=== PATIENT | male | born 1945 | race African-American/Black ===

== ENCOUNTER 2018-06-07 12:43 | Inpatient (IN) | payer MEDICARE, BC, OTHER ==
[~2018-06-07] VITALS: Ht 170.2 cm; Wt 73.5 kg
[~2018-06-07 12:43] MED LIST: ADVAIR HFA115 MCG/21 INH; ALDACTONE50 MG; AMITRIPTYLINE H25 M2 PO; ANDROGEL; ANDROGEL2.5 GM TRANSDERM; ASA81BEC PO; ASPIRIN325; ATROVENT HFA14 GM INH; ATROVENT15 ML; AUGMENTIN 875875 MG PO; AZELAST NASAL137 MCG; B-COMPLEX PLUS1 EACH PO; BACTROBAN22 GM TP; BENICAR PO; BENZEPRO100 GM; BYSTOLIC 5 MG5 M1; CALCIUM PO; CELEBREX 200 M200 M1; CIPROFLOXIN HC2.5 M1 OPHTHALMIC; CO-ENZYME Q-1010 MG PO; COENZYME Q10200 M2 PO; COLCHICINE0.6 MG; COLCHICINE0.6 MG PO; CRESTOR PO; CRESTOR5 MG; CYMBALTA20 MG; EPIPEN0.3 MG/0.1 IM; ERYTHROMYCIN E3.5 G3 OPHTHALMIC; FELODIPINE ER10 MG; FINASTERIDE5 MG PO; FISHOIL; FLEXERIL; FLEXERIL PO; FLOMAX0.4 MG; FLOMAX0.4 MG PO; FOLIC ACID PO; FOLIC ACID1 MG PO; GLUCOSAMINE &1 EAC1 PO; HYDROCORTISONE30 G9; HYTRIN 5 M5 MG/1 CAP; IBUPROFEN 400400 M2; IBUPROFEN 600600 M1; KEFLEX500 MG PO; L-ARGININE HC1000 GM MC; L-ARGININE1000 MG; L-LYSINE1000 M1; LAMICTAL XR200 MG; MEGA MEN; MOBIC7.5 M1 PO; MULTIVITAMINS; NAPROSYN500 MG PO; NITROSTAT0.4 MG; NORCO 10-325 T1 EACH; NORCO 5-325 TA1 EAC1 PO; NORCO 5-325 TA1 EACH PO; NORVASC10 MG PO; OMNARIS; OXYCONTIN10 M1; PERCOCET 5-3251 EACH PO; PERCOCET 7.5-31 EACH PO; POTASSIUM CHLO10 ME1; PROTONIX40 M1 PO; RESTASIS1 EACH OPHTHALMIC; ROBAXIN 750 MG750 M1; ROBAXIN 750 MG750 MG PO; SINGULAIR 10 MG10 M1; SKELAXIN 800 M800 M1; SPIRONOLACTONE25 M1 PO; SUPER B-COMPLE1 EAC2; TAMSULOSIN HCL0.4 MG; TRILEPTAL300 MG PO; VALIUM5 MG PO; VIAGRA100 MG; VITAMIN D1000 UNI1 PO; VITAMIN D3400 UNIT PO; VITAMIN E800 UNIT; VITAMINC500 PO; VOLTAREN GEL 1100 G1; ZETIA10 MG; ZETIA10 MG PO; ZETONNA6.1 GM; ZINC CHELATE50 MG; ZYRTEC 10 MG TA10 MG PO; [UNRECOGNIZED DRUG - OTHER]; [UNRECOGNIZED DRUG - OTHER]; [UNRECOGNIZED DRUG - OTHER]; [UNRECOGNIZED DRUG - OTHER] PO
[2018-06-07 12:51] VITALS: BP 186/85
[2018-06-07] MEDS ORDERED: CENTRUM SILVER1 EAC2 PO (13:12)
[2018-06-07] MEDS ORDERED: CO Q-10100 MG PO (13:12)
[2018-06-07] MEDS ORDERED: NEXIUM 40 MG CA40 M1 PO (13:13)
[2018-06-07] MEDS ORDERED: FISH OIL 1,001000 M2 PO (13:13)
[2018-06-07] MEDS ORDERED: HYDROCHLOROTH12.5 M1 PO (13:14)
[2018-06-07] MEDS ORDERED: SINGULAIR 10 MG10 MG PO (13:15)
[2018-06-07] MEDS ORDERED: PERCOCET 10-321 EACH PO (13:15)
[2018-06-07] MEDS ORDERED: TRULANCE3 MG PO (13:16)
[2018-06-07] MEDS ORDERED: PROTONIX40 M1 PO (13:18)
[2018-06-07] MEDS ORDERED: GAS RELIEF80 MG PO (13:18)
[2018-06-07] MEDS ORDERED: CIALIS5 MG PO (13:19)
--- NOTE | 2018-06-07 13:36 | NUR ---
PT WAS IN XRAY ROOM WHEN TECH STATES PT CANNOT ANSWER ANY QUESTIONS & IS NOT MOVING RT FINGERS. PT UNABLE TO ANSWER NAME & AGE, ANSWERS ONLY "ALRIGHT". STEVE LOTT NOTIFIED OF S/S. PT TAKEN DIRECTLY TO CT SCAN. DR. CHAVES NOTIFIED BY KAYLEI WILSON.
[2018-06-07 14:10] LABS: HEMATOCRIT 40.6 % (42.0-52.0); MCH 29.1 pg (26.0-34.0); MCHC 34.4 g/dL (28.0-37.0); MCV 84.7 fL (80.0-100.0); MPV 8.3 fl. (7.2-11.1); RBC 4.79 mil/uL (4.50-6.00); RDW-CV 14.8 % (10.5-14.5); WBC 5.5 thou/uL (4.0-11.0)
[2018-06-07 14:13] LABS: CALCIUM 9.4 mg/dL (8.5-10.1); CREATININE 1.2 mg/dL (0.6-1.3); POTASSIUM 4.2 mmol/L (3.5-5.1)
[2018-06-07 14:14] LABS: APTT 26.6 Seconds (25.0-31.3); PROTIME 10.3 Seconds (9.20-11.50)
[2018-06-07 14:18] LABS: ALBUMIN 3.9 g/dL (3.4-5.0); TOTAL BILIRUBIN 0.3 mg/dL (<0.1-1.0); TOTAL PROTEIN 7.3 g/dL (6.4-8.2)
[2018-06-07 15:43] VITALS: BP 138/68
[2018-06-07 16:47] VITALS: BP 147/78
[2018-06-07] MEDS ORDERED: MEDROL32 MG PO (17:20)
[2018-06-07] MEDS ORDERED: VITAMIN D1000 UNI1 PO (17:20)
[2018-06-07] MEDS ORDERED: ATROVENT HFA14 GM INH (17:21)
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
[2018-06-07 20:00] VITALS: BP 131/67
[2018-06-07 23:57] VITALS: BP 151/93
[2018-06-08 04:00] VITALS: BP 130/78
--- NOTE | 2018-06-08 04:51 | NUR ---
ASSUMED PT CARE AT 1930. ASSESSMENT COMPLETED CHARTED. ABLE TO MAKE NEEDS KNOWN. PT RESTING IN BED MOST OF THE SHIFT, WENT DOWN TO CT AROUND 10PM LAST NIGHT AND CAME BACK SHORTLY AFTER. NO RESULTS YET FOR CT. NIH OF 0 NOTED. WILL CONTINUE TO MONITOR.
[2018-06-08 05:45] LABS: ALBUMIN 3.2 g/dL (3.4-5.0); ALKALINE PHOSPHATASE 57 U/L (46-116); ANION GAP 5 mmol/L (7-16); BUN 19 mg/dL (7-18); CHLORIDE 104 mmol/L (98-107); CHOLESTEROL 190 mg/dL (<200); CO2 27 mmol/L (21-32); CREATININE 1.2 mg/dL (0.6-1.3); GLUCOSE 93 mg/dL (70-99); HDL CHOLESTEROL 64 mg/dL (>40); LDL CHOLESTEROL 114 mg/dL (<100); POTASSIUM 4.5 mmol/L (3.5-5.1); SGOT 26 U/L (15-37); SGPT 45 U/L (30-65); SODIUM 136 mmol/L (136-145); TOTAL BILIRUBIN 0.4 mg/dL (<0.1-1.0); TOTAL PROTEIN 6.1 g/dL (6.4-8.2); TRIGLYCERIDE 60 mg/dL (<150); VLDL 12 mg/dL (<40)
[2018-06-08 05:58] LABS: SERUM ASSESSMENT CLEAR
[2018-06-08 07:48] VITALS: BP 137/71
--- NOTE | 2018-06-08 09:48 | NUR ---
ASSUMED CARE OF PT THIS AM AROUND 0715- UPSETTER IN PLACE ORDERED, TRACING SR- UPON ASSESSMENT PT NOTED TO BE RESTING IN BED, ON CELL PHONE- PT A&O X4- CONTINENT OF BOWEL AND BLADDER- SBA WITH RW FOR TRANSFERS FOR SAFETY- LCTA, RESP EVEN AND UN-LABORED- VSS, O2 STAT 98% ON RA-ABDOMEN SOFT/FLAT NON-TENDER, BS X4 QUADS- PT REPORTS LAST BM X3 DAYS AGO AND REPORTS THIS TO BE NORMAL FOR HIM AND PASSING GAS OKAY- IV NOTED TO RIGHT AC INTACT AND SL- NIH IN PLACE ORDERED, NOTED TO BE 0 WITH NO CHANGE NOTED- GOOD PO INTAKE NOTED WITH BREAKFAST THIS AM- EEG PLANNED THIS AM- PT REPORTS PAIN 6/10 TO RIGHT SHOULDER AND NECK; IMPROVEMENT WITH REPOSITIONING- WORKING WITH THERAPIES PRESCIBED THIS AM- CALL LIGHT AND PERSONAL BELONGINGS WITH IN REACH- HOURLY ROUNDS IN PLACE R/T SAFETY/NEEDS- ALL NEEDS MET AT THIS TIME-WCTM
[2018-06-08 10:49] VITALS: BP 137/71
[2018-06-08 11:45] VITALS: BP 138/79
--- NOTE | 2018-06-08 12:46 | EKG ---
[place] [address] ELECTROCARDIOGRAM REPORT Name: KIRSTY GUSMAN Room: [address] ADM IN M.R.#: [id number] Admission: 06/07/18 Attend Phys: Tristen Ferrer MD Discharge: Date of : 43 Report #: [id number] THIS REPORT FOR: //name// [facility] ED Test Date: 2018-06-07 Test Time: 14:15:32 Pat Name: KIRSTY GUSMAN Department: Room: [facility] Gender: [employer] Driver: Kayleen DRAPER : 1945 Requested By: Adalid Akhtar Order Number: [id number] MD: Sathya Badillo Measurements Intervals [place] Rate: 73 P: -36 [place]: 179 QRS: 25 QRSD: 91 T: 42 QT: 370 QTc: 408 Interpretive Statements Sinus rhythm No previous ECG available for comparison Electronically Signed On 06-08-2018 12:46:37 CDT by Sathya Badillo [email or web address] <ELECTRONICALLY SIGNED> By: Sathya Badillo MD, [facility] 06/08/18 1246 1415 1415 Sathya Badillo MD, FAC /EPI
--- NOTE | 2018-06-08 15:23 | NUR ---
ORDERS RECIEVIED FOR OKAY TO D/C THIS SHIFT IF JACQUI WIT NEUROLOGY- EEG COMPLETED THIS AM PRESCIBED- HERE WITH NEUROLOGY TO SEE AND ASSESS- OKAY TO D/C RECIEVED AFTER LAB FOR TRIEPTAL DRAW- LAB HER TO DRAW AND STATES THAT THEY WILL GO AHEAD AND DRAW PRIOR TO D/C BUT NEED TO GET APPROVAL- NEED FOR F/U WITH NEURO IN 1 WEEK COMMUNICATED WITH VERBAL UNDERSTANDING RECIEVIED PER PT- IV TO RIGHT AC D/C'D ALONG WITH CHILDR[employer] CARET[employer]ER PRIOR TO D/C- TEACHING/EDUCATION GIVEN TO PT PRIOR TO D/C WITH ALL QUESTIONS AND CONCERNS ADDRESSED- WRITTEN EDUCATION PROVIDED TO PT WITH NO CHANGES NOTED TO MEDICATIONS- BELONGINGS PACKED AND ACCOUNED FOR PER PT- PT ESCORTED PER TECH WITH BELONGINGS TO VEHICLE VIA W/C AT 1530 WITH BELONGINGS- NO PROBLEMS NOTED AT TIME OF D/C
--- NOTE | 2018-06-08 15:43 | NUR ---
Received order to evaluate pt for d/c planning needs. Pt d/c prior to being seen today.
--- NOTE | 2018-06-08 16:10 | NUR ---
PT. DISCHARGED PRIOR TO O.T. EVAL.
[2018-06-08 21:06] LABS: GLYCOHEMOGLOBIN (HGB A1C) 5.5 % (4.8-5.6)
--- NOTE | 2018-06-24 09:50 | EEG ---
[address] [address] EEG STUDY REPORT Name: GUSMANKIRSTY Room: [address] IN M.R.#: [id number] Admission: 06/07/18 Attend Phys: Tristen Ferrer MD Discharge: 06/08/18 Date of : 43 Report #: [id number] THIS REPORT FOR: //name// CC: Tristen [facility] Physician staff DATE OF SERVICE: 06/08/2018 This patient is being evaluated for the possibility of seizure. EEG was done by placing the electrode by standard 10-20 system of electrode placement. Both referential and sequential montages were used for recording. The patient did not cooperate and EEG is masked by a lot of artifact. Background activity appeared to be about 8 Hz and 30 microvolts. It is a poorly formed background activity. It is intermixed with theta range slowing throughout the record. The patient EEG became slower and associated with some vertex sharp waves and some sleep spindles, which are symmetrical. No active epileptiform activity was noticed. Photic stimulation is unremarkable. IMPRESSION: This electroencephalogram is difficult to interpret because it is intermixed with a lot of theta range slowing on both sides. That is a nonspecific abnormality, which can occur with dementia, encephalopathy, effect of psychotropic medication, etc. No active epileptiform activity was noticed during this record. Thank you very much for this referral. <ELECTRONICALLY SIGNED> By: Jamil Carrillo MD 06/24/18 0950 1536 [id number] deo Fernandez
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
== END 2018-06-08 15:30 | disposition home or self-care (01) | DRG 100 ==
LOC: M.ERS 12:43 → M.2W 14:58 → M.TBA-ER 14:58 → M.2W 16:17
PROVIDERS: Emergency Medicine Emergency Medical Services; Nurse Practitioner Family; ADMIT Internal Medicine
DX: R56.9 Unspecified convulsions (principal); G93.40 Encephalopathy, unspecified; E78.00 Pure hypercholesterolemia, unspecified; G89.29 Other chronic pain; M19.90 Unspecified osteoarthritis, unspecified site; N40.0 Benign prostatic hyperplasia without lower urinary tract symptoms; Z90.49 Acquired absence of other specified parts of digestive tract; Z85.89 Personal history of malignant neoplasm of other organs and systems; Z88.2 Allergy status to sulfonamides; Z88.8 Allergy status to other drugs, medicaments and biological substances; Z91.041 Radiographic dye allergy status; Z91.010 Allergy to peanuts; Z91.013 Allergy to seafood; Z79.82 Long term (current) use of aspirin; Z79.899 Other long term (current) drug therapy